=== PATIENT | female | born 1930 | race Caucasian/White ===

== ENCOUNTER 2017-05-22 09:47 | Observation (INO) | payer OTHER ==
[~2017-05-22] VITALS: Ht 144.8 cm; Wt 54.5 kg
[2017-05-22 09:48] VITALS: BP 176/81; PULSE 80; RESP 16; TEMP 99.2; O2SAT 94
[2017-05-22] MEDS ORDERED: AMLO5TAB2 PO (10:11)
[2017-05-22] MEDS ORDERED: ATEN100T PO (10:11)
[2017-05-22] MEDS ORDERED: LEVO100T5 PO (10:11)
[2017-05-22] MEDS ORDERED: ATOR40TA16 PO (10:11)
[2017-05-22] MEDS ORDERED: LISI10TA3 PO (10:11)
[2017-05-22] MEDS ORDERED: PLAV75TA29 PO (10:11)
--- NOTE | 2017-05-22 10:22 | PD ---
HPI Chief Complaint: abdominal pain Time Seen by Provider: 10:18 Travel History International Travel<30 days: No Contact w/Intl Traveler<30days: No Traveled to known affect area: No History of Present Illness HPI c/o ruq pain, radiated to right shoulder blade, sharp, constant for past 2 weeks , only changing in intensity, rates 8/10, denies n/v/d/fever/cain/cp at this time....patient states that taking deep breaths worsens radiated pain. nkda pcp duran guillen pmhx:htn, hyperchol, hypothyroid, cva with left sided weakness pshx: PFSH Past Medical History Cerebrovascular Accident: Yes (2012, left side weakness) Diminished Hearing: Yes Social History Alcohol Use: No Tobacco Use: No Substance Use: No Allergies-Medications (Allergen,Severity, Reaction): Coded Allergies: No Known Allergies (Unverified , 05/22/17) Reported Meds & Prescriptions Reported Meds & Active Scripts Active Reported Lisinopril 10 Mg Tab 10 Mg PO BID Levothyroxine (Levothyroxine Sodium) 100 Mcg Tab 100 Mcg PO DAILY Plavix (Clopidogrel Bisulfate) 75 Mg Tab 75 Mg PO DAILY Atorvastatin (Atorvastatin Calcium) 40 Mg Tab 40 Mg PO HS Atenolol 100 Mg Tab 100 Mg PO DAILY Amlodipine (Amlodipine Besylate) 5 Mg Tab 5 Mg PO DAILY Review of Systems General / Constitutional: No: Fever Eyes: No: Visual changes HENT: No: Headaches Cardiovascular: No: Chest Pain or Discomfort Respiratory: No: Shortness of Breath Gastrointestinal: Positive: Abdominal Pain (ruq) Genitourinary: No: Dysuria Musculoskeletal: No: Pain Skin: No Rash Neurologic: No: Weakness Psychiatric: No: Depression Endocrine: No: Polydipsia Hematologic/Lymphatic: No: Easy Bruising Physical Exam Narrative GENERAL: SKIN: Warm and dry. HEAD: Atraumatic. Normocephalic. EYES: Pupils equal and round. No scleral icterus. No injection or drainage. ENT: No nasal bleeding or discharge. Mucous membranes pink and moist. NECK: Trachea midline. No JVD. CARDIOVASCULAR: Regular rate and rhythm. RESPIRATORY: No accessory muscle use. Clear to auscultation. Breath sounds equal bilaterally. GASTROINTESTINAL: Abdomen soft, nondistended. MUSCULOSKELETAL: Extremities without clubbing, cyanosis, or edema. No obvious deformities. NEUROLOGICAL: Awake and alert. No obvious cranial nerve deficits. Motor grossly within normal limits. Five out of 5 muscle strength in the arms and legs. Normal speech. PSYCHIATRIC: Appropriate mood and affect; insight and judgment normal. Data Data Last Documented VS Vital Signs Date Time Temp Pulse Resp B/P (MAP) Pulse Ox O2 Delivery O2 Flow Rate FiO2 05/22/17 10:06 17 Room Air 05/22/17 10:06 05/22/17 09:48 99.2 80 94 Orders Orders Complete Blood Count With Diff (05/22/17 10:33) Comprehensive Metabolic Panel (05/22/17 10:33) Lipase (05/22/17 10:33) Prothrombin Time / Inr (Pt) (05/22/17 10:33) Act Partial Throm Time (Ptt) (05/22/17 10:33) Ct Abd/Pel W/O Iv Contrast (05/22/17 10:33) Us Abdomen Gallbladder (05/22/17 ) Iv Access Insert/Monitor (05/22/17 10:33) Ecg Monitoring (05/22/17 10:33) Oximetry (05/22/17 10:33) NPO (05/22/17 10:33) Morphine Inj (Morphine Inj) (05/22/17 10:45) Ondansetron Inj (Zofran Inj) (05/22/17 10:45) Sodium Chlor 0.9% 1000 Ml Inj (Ns 1000 M (05/22/17 10:33) Sodium Chloride 0.9% Flush (Ns Flush) (05/22/17 10:45) Electrocardiogram (05/22/17 10:33) Ckmb (Isoenzyme) Profile (05/22/17 10:34) Troponin I (05/22/17 10:34) Labs Laboratory Tests Test 05/22/17 10:50 White Blood Count 9.0 TH/MM3 Red Blood Count 3.77 MIL/MM3 Hemoglobin 12.2 GM/DL Hematocrit 36.4 % Mean Corpuscular Volume 96.7 FL Mean Corpuscular Hemoglobin 32.4 PG Mean Corpuscular Hemoglobin Concent 33.5 % Red Cell Distribution Width 13.4 % Platelet Count 222 TH/MM3 Mean Platelet Volume 8.2 FL Neutrophils (%) (Auto) 68.8 % Lymphocytes (%) (Auto) 21.6 % Monocytes (%) (Auto) 6.7 % Eosinophils (%) (Auto) 2.4 % Basophils (%) (Auto) 0.5 % Neutrophils # (Auto) 6.2 TH/MM3 Lymphocytes # (Auto) 1.9 TH/MM3 Monocytes # (Auto) 0.6 TH/MM3 Eosinophils # (Auto) 0.2 TH/MM3 Basophils # (Auto) 0.0 TH/MM3 CBC Comment DIFF FINAL Differential Comment Prothrombin Time 10.0 SEC Prothromb Time International Ratio 1.0 RATIO Activated Partial Thromboplast Time 22.7 SEC Blood Urea Nitrogen 12 MG/DL Creatinine 0.76 MG/DL Random Glucose 135 MG/DL Total Protein 7.4 GM/DL Albumin 3.4 GM/DL Calcium Level 8.8 MG/DL Alkaline Phosphatase 105 U/L Aspartate Amino Transf (AST/SGOT) 17 U/L Alanine Aminotransferase (ALT/SGPT) 20 U/L Total Bilirubin 0.4 MG/DL Sodium Level 140 MEQ/L Potassium Level 3.8 MEQ/L Chloride Level 108 MEQ/L Carbon Dioxide Level 24.6 MEQ/L Anion Gap 7 MEQ/L Estimat Glomerular Filtration Rate 72 ML/MIN Total Creatine Kinase 73 U/L Troponin I LESS THAN 0.02 NG/ML Lipase 111 U/L [facility] Medical Decision Making Medical Screen Exam Complete: Yes Emergency Medical Condition: Yes Medical Record Reviewed: Yes Differential Diagnosis biliary colic v cholecystitis v pancreatitis v hepatitis v colitis v diverticulitis V ACALCULOUS CHOLECYSTITIS V ATYPICAL NONSTEMI Narrative Course CBC NEG FOR LEUKOCYTOSIS, NO ANEMIA, NORMAL PLATELET COAG PROFILE NORMAL NL ELECTROLYTES, NL KIDNEY FUNCTION, NORMAL LIVER/PANCREAS FUNCTION CAT SCAN NEG FOR DIVERTIC/COLITIS/FREE AIR/SBO OR ILEUS ULTRASOUND SHOWS NO GALLSTONE/GB WALL THICKENING/OR PERICHOL FLUID Diagnosis Primary Impression: RIGHT PHRENIC IRRITATION Additional Impression: ATYPICAL NONSTEMI V ACALCULOUS CHOLECYSTITIS Patient Instructions: Gallbladder Ejection Fraction (GEN), General Instructions Keith Mendez MD May 22, 2017 10:22
[2017-05-22] MEDS ORDERED: SODIUM CHLOR 0.9% 1000 ML INJ 1,000 ML IV SCH (10:33)
[2017-05-22] MEDS ORDERED: MORPHINE SULFATE 4 MG/ML INJ IV PUSH ONE (10:45)
[2017-05-22] MEDS ORDERED: ONDANSETRON HCL 4 MG/2 ML VIAL IVP ONE (10:45)
[2017-05-22] MEDS ORDERED: SODIUM CHLORIDE 0.9% FLUSH 10 ML FLUSH IV FLUSH PRN ×2 (10:45→13:30)
[2017-05-22 11:19] LABS: AUTOMATED NEUTROPHIL # 6.2 TH/MM3 (1.8-7.7); BASOPHIL % 0.5 % (0.0-2.0); EOSINOPHIL # 0.2 TH/MM3 (0-0.4); EOSINOPHIL % 2.4 % (0.0-4.0); HEMATOCRIT 36.4 % (35.0-46.0); HEMOGLOBIN 12.2 GM/DL (11.6-15.3); LYMPH % 21.6 % (9.0-44.0); LYMPHOCYTE # 1.9 TH/MM3 (1.0-4.8); MEAN CELL VOLUME 96.7 FL (80.0-100.0); MEAN CORPUSCULAR HEMOGLOBIN 32.4 PG (27.0-34.0); MEAN CORPUSCULAR HGB CONC 33.5 % (32.0-36.0); MEAN PLATELET VOLUME 8.2 FL (7.0-11.0); MONO % 6.7 % (0.0-8.0); MONOCYTE # 0.6 TH/MM3 (0-0.9); NEUT % 68.8 % (16.0-70.0); PLATELET COUNT 222 TH/MM3 (150-450); RED BLOOD COUNT 3.77 MIL/MM3 (4.00-5.30); RED CELL DISTRIBUTION WIDTH 13.4 % (11.6-17.2)
[2017-05-22 11:36] LABS: ALBUMIN 3.4 GM/DL (3.4-5.0); AST (GOT) 17 U/L (15-37); BICARBONATE 24.6 MEQ/L (21.0-32.0); BLOOD UREA NITROGEN 12 MG/DL (7-18); CALCIUM 8.8 MG/DL (8.5-10.1); CHLORIDE 108 MEQ/L (98-107); CREATININE 0.76 MG/DL (0.50-1.00); GLOMERULAR FILTRATION RATE 72 ML/MIN (>89); GLUCOSE,RANDOM 135 MG/DL (74-106); SODIUM (NA) 140 MEQ/L (136-145)
[2017-05-22 11:39] LABS: ALKALINE PHOSPHATASE 105 U/L (45-117); ALT (GPT) 20 U/L (10-53); TOTAL BILIRUBIN ADULT 0.4 MG/DL (0.2-1.0); TOTAL PROTEIN 7.4 GM/DL (6.4-8.2); TROPONIN I LESS THAN 0.02 NG/ML (0.02-0.05)
--- NOTE | 2017-05-22 11:41 | RADRPT ---
EXAM DATE/TIME: 05/22/2017 10:55 [facility] COMPARISON: No previous studies available for comparison. INDICATIONS : Right upper quadrant and flank pain. ORAL CONTRAST: No oral contrast ingested. RADIATION DOSE: 7.84 CTDIvol (mGy) MEDICAL HISTORY : Cerebrovascular disease. SURGICAL HISTORY : None. ENCOUNTER: Initial ACUITY: 1 day PAIN SCALE: 5/10 LOCATION: Right upper quadrant TECHNIQUE: Renal colic protocol. Volumetric scanning of the abdomen and pelvis was performed. Using automated exposure control and adjustment of the mA and/or kV according to patient size, radiation dose was kep t as low as reasonably achievable to obtain optimal diagnostic quality images. DICOM format image da ta is available electronically for review and comparison. FINDINGS: Right side: No evidence hydronephrosis. No calcified stones in the collecting system or in the right ureter. Left side: No evidence of hydronephrosis. No calcified stones in the collecting system or along the left ureter . 1 cm hypodensity in the cortex of the lateral mid/lower pole which cannot be further characterized on noncontrast study, possibly representing cysts. Bladder: Smooth margins. No calcifications within the lumen. Other: No dilated loops of small and large bowel. No calcified gallstones. No evidence of free fluid stop mild curvature of the lower lumbar spine convex towards the left. CONCLUSION: Negative renal colic CT. Migel Disla MD on May 22, 2017 at 11:37 Board Certified Radiologist. This report was verified electronically.
--- NOTE | 2017-05-22 11:54 | RADRPT ---
EXAM DATE/TIME: 05/22/2017 10:52 [facility] COMPARISON: No previous studies available for comparison. INDICATIONS : Right upper quadrant pain. MEDICAL HISTORY : Stroke. Hearing loss. Glasses. SURGICAL HISTORY : None. ENCOUNTER: Initial ACUITY: 4-6 days PAIN SCORE: 2/10 LOCATION: Right upper quadrant MEASUREMENTS: LIVER: 13.6 cm length COMMON DUCT: 5 mm RIGHT KIDNEY: 9.6 x 4.7 x 4.8 cm FINDINGS: LIVER: Normal echotexture without focal lesion or ductal dilatation. COMMON DUCT: No intraluminal mass or stone visualized. GALLBLADDER: Contains no stones, demonstrates no wall thickening or pericholecystic fluid. PANCREAS: The visualized portions are within normal limits. RIGHT KIDNEY: No evidence of hydronephrosis, stone, or mass. CONCLUSION: Normal examination. Migel Schultz Jr., MD on May 22, 2017 at 11:48 Board Certified Radiologist. This report was verified electronically.
[2017-05-22] MEDS ORDERED: SINCALIDE 5 MCG/5 ML VIAL IV ONE (13:24)
[2017-05-22] MEDS ORDERED: LACTULOSE SYRUP 20 GM/30 ML CUP PO PRN (13:30)
[2017-05-22] MEDS ORDERED: ACETAMINOPHEN/HYDROcodone 325 MG/5 MG TAB PO PRN (13:30)
[2017-05-22] MEDS ORDERED: ONDANSETRON HCL 4 MG/2 ML VIAL IVP PRN (13:30)
[2017-05-22] MEDS ORDERED: BISACODYL 10 MG SUPP RECTAL PRN (13:30)
[2017-05-22] MEDS ORDERED: SENNOSIDES 8.6 MG TAB PO PRN (13:30)
[2017-05-22] MEDS ORDERED: MORPHINE SULFATE 2 MG/ML INJ IV PUSH PRN (13:30)
[2017-05-22] MEDS ORDERED: ACETAMINOPHEN/HYDROcodone 325 MG/10 MG TAB PO PRN (13:30)
[2017-05-22] MEDS ORDERED: NALOXONE HCL 0.4 MG/ML AMP IV PUSH PRN (13:30)
[2017-05-22] MEDS ORDERED: MAGNESIUM HYDROXIDE SUSP 30 ML CUP PO PRN (13:30)
[2017-05-22] MEDS ORDERED: NITROGLYCERIN 2% OINT 1 GM PACKET TOPICAL PRN (13:30)
--- NOTE | 2017-05-22 14:33 | HHI.HP ---
[facility] Primary Care Physician Elder Tate MD Admission Diagnosis ACALCULOUS CHOLECYSTITIS, R/O NONSTEMI Diagnoses: Travel History International Travel<30 Days: No Contact w/Intl Traveler <30 Da: No Traveled to Known Affected Are: No History of Present Illness Patient is a very pleasant 86-year-old female with past medical history of hyperlipidemia, hypertension, hypothyroidism, CVA in 2012 presented to the emergency room upon the request of her primary care physician with complaint of right upper quadrant pain. She tells me her pain is worse with deep breathing and sneezing which started last . She tells me the pain is a 5 out of 10 radiates to her back and shoulder blades Pain comes and goes. Over the weekend, pain had gone away however on Thursday the pain came back. She denies any associated nausea or vomiting, fevers or chills. She has not seen a money manager for this. She did see her heart doctor, Dr. Valdez on May 07 and per patient everything was "okay ". She denies any chest pains, shortness of breath. She is hopeful to go home soon. Denies any abdominal pain other than the right upper quadrant area. She denies any burning with urination or increased urinary frequency. Review of Systems Except as stated in HPI: all other systems reviewed are Neg Past Family Social History Past Medical History hyperlipidemia, hypertension, hypothyroidism, CVA in 2012 Past Surgical History Denies any prior surgery Reported Medications Reported Meds & Active Scripts Active Reported Lisinopril 10 Mg Tab 10 Mg PO BID Levothyroxine (Levothyroxine Sodium) 100 Mcg Tab 100 Mcg PO DAILY Plavix (Clopidogrel Bisulfate) 75 Mg Tab 75 Mg PO DAILY Atorvastatin (Atorvastatin Calcium) 40 Mg Tab 40 Mg PO HS Atenolol 100 Mg Tab 100 Mg PO DAILY Amlodipine (Amlodipine Besylate) 5 Mg Tab 5 Mg PO DAILY Allergies: Coded Allergies: No Known Allergies (Unverified , 05/22/17) Family History Mother had a stroke and a heart attack she at the age of 95. Father young possible CVA Social History Denies any smoking history, alcohol use or illegal drug use. Physical Exam Vital Signs Vital Signs Date Time Temp Pulse Resp B/P (MAP) Pulse Ox O2 Delivery O2 Flow Rate FiO2 05/22/17 13:48 05/22/17 10:06 17 Room Air 05/22/17 10:06 Room Air 05/22/17 09:48 99.2 80 16 176/81 (112) 94 Room Air Physical Exam GENERAL: This is an elderly female, laying in bed, pressing against her right upper quadrant SKIN: No rashes, ecchymoses or lesions. Cool and dry. HEAD: Atraumatic. Normocephalic. No temporal or scalp tenderness. EYES: Pupils equal round and reactive. Extraocular motions intact. No scleral icterus. No injection or drainage. ENT: Nose without drainage. Airway patent. NECK: Trachea midline. CARDIOVASCULAR: Regular rate and rhythm without murmurs RESPIRATORY: Clear to auscultation. Breath sounds equal bilaterally. No wheezes GASTROINTESTINAL: Abdomen soft, tender to deep palpation in the right upper quadrant, ? reis's sign, pt is able to reproduce it herself. No tenderness w palpation of the right side of chest. MUSCULOSKELETAL: Extremities without edema. No calf tenderness. Negative Homans sign bilaterally. NEUROLOGICAL: Awake and alert. Cranial nerves II through XII intact. Motor and sensory grossly within normal limits. Normal speech. Laboratory Laboratory Tests Test 05/22/17 10:50 White Blood Count 9.0 Red Blood Count 3.77 Hemoglobin 12.2 Hematocrit 36.4 Mean Corpuscular Volume 96.7 Mean Corpuscular Hemoglobin 32.4 Mean Corpuscular Hemoglobin Concent 33.5 Red Cell Distribution Width 13.4 Platelet Count 222 Mean Platelet Volume 8.2 Neutrophils (%) (Auto) 68.8 Lymphocytes (%) (Auto) 21.6 Monocytes (%) (Auto) 6.7 Eosinophils (%) (Auto) 2.4 Basophils (%) (Auto) 0.5 Neutrophils # (Auto) 6.2 Lymphocytes # (Auto) 1.9 Monocytes # (Auto) 0.6 Eosinophils # (Auto) 0.2 Basophils # (Auto) 0.0 CBC Comment DIFF FINAL Differential Comment Prothrombin Time 10.0 Prothromb Time International Ratio 1.0 Activated Partial Thromboplast Time 22.7 Blood Urea Nitrogen 12 Creatinine 0.76 Random Glucose 135 Total Protein 7.4 Albumin 3.4 Calcium Level 8.8 Alkaline Phosphatase 105 Aspartate Amino Transf (AST/SGOT) 17 Alanine Aminotransferase (ALT/SGPT) 20 Total Bilirubin 0.4 Sodium Level 140 Potassium Level 3.8 Chloride Level 108 Carbon Dioxide Level 24.6 Anion Gap 7 Estimat Glomerular Filtration Rate 72 Total Creatine Kinase 73 Troponin I LESS THAN 0.02 Lipase 111 Result Diagram: 05/22/17 1050 05/22/17 1050 Imaging Last Impressions Abdomen/Pelvis CT 05/22/17 1033 Signed Impressions: Service Date/Time: Monday, May 22, 2017 10:55 - CONCLUSION: Negative renal colic CT. Migel Disla MD Gall Bladder Ultrasound 05/22/17 0000 Signed Impressions: Service Date/Time: Monday, May 22, 2017 10:52 - CONCLUSION: Normal examination. Migel Schultz Jr., MD Capchai VTE Risk Assessment Caprini VTE Risk Assessment: Mod/High Risk (score >= 2) Caprini Risk Assessment Model Point Value = 1 Point Value = 2 Point Value = 3 Point Value = 5 Age 41-60 Minor surgery BMI > 25 kg/m2 Swollen legs Varicose veins or History of unexplained or recurrent spontaneous Oral contraceptives or hormone replacement Sepsis (< 1 month) Serious lung disease, including pneumonia (< 1 month) Abnormal pulmonary function Acute myocardial infarction Congestive heart failure (< 1 month) History of inflammatory bowel disease Medical patient at bed rest Age 61-74 Arthroscopic surgery Major open surgery (> 45 min) Laparoscopic surgery (> 45 min) Malignancy Confined to bed (> 72 hours) Immobilizing plaster cast Central venous access Age >= 75 History of VTE Family history of VTE Factor V Leiden Prothrombin [id number] Lupus anticoagulant Anticardiolipin antibodies Elevated serum homocysteine Heparin-induced thrombocytopenia Other congenital or acquired thrombophilia Stroke (< 1 month) Elective arthroplasty Hip, pelvis, or leg fracture Acute spinal cord injury (< 1 month) Prophylaxis Regimen Total Risk Factor Score Risk Level Prophylaxis Regimen 0-1 Low Early ambulation 2 Moderate Order ONE of the following: *Sequential Compression Device (SCD) *Heparin 5000 units SQ BID 3-4 Higher Order ONE of the following medications: *Heparin 5000 units SQ TID *Enoxaparin/Lovenox 40 mg SQ daily (WT < 150 kg, CrCl > 30 mL/min) *Enoxaparin/Lovenox 30 mg SQ daily (WT < 150 kg, CrCl > 10-29 mL/min) *Enoxaparin/Lovenox 30 mg SQ BID (WT < 150 kg, CrCl > 30 mL/min) AND/OR *Sequential Compression Device (SCD) 5 or more Highest Order ONE of the following medications: *Heparin 5000 units SQ TID (Preferred with Epidurals) *Enoxaparin/Lovenox 40 mg SQ daily (WT < 150 kg, CrCl > 30 mL/min) *Enoxaparin/Lovenox 30 mg SQ daily (WT < 150 kg, CrCl > 10-29 mL/min) *Enoxaparin/Lovenox 30 mg SQ BID (WT < 150 kg, CrCl > 30 mL/min) AND *Sequential Compression Device (SCD) Assessment and Plan Assessment and Plan Right upper quadrant tenderness/pain: Questionable Reis sign. Ultrasound of the gallbladder was negative, CT abdomen pelvis also negative for renal colic. At this time lipase and LFTs are within normal limits. I will consult gastroenterology for further evaluation and recommendations. I will order a HIDA scan. Pain control with [place] as needed and morphine for breakthrough as needed. Continue stool softeners. IV hydration. NPO for now. Await recs from GI. In addition, initial trop was 0.02. Will trend CE to r/o ACS. Monitor closely. Pt's ply cutter is Dr. Valdez hyperlipidemia, hypertension, hypothyroidism, CVA in 2012: stable. home meds resumed DVT proph: heparin Code Status full Discussed Condition With patient, daughter and ER physician aPige Echevarria MD May 22, 2017 14:33
[2017-05-22 14:54] VITALS: BP 160/70; PULSE 66; RESP 21; TEMP 98; O2SAT 96
[2017-05-22] MEDS ORDERED: cloNIDine HCL 0.1 MG TAB PO PRN (15:00)
[2017-05-22] MEDS ORDERED: ENALAPRILAT 1.25 MG/ML VIAL IV PUSH PRN (15:00)
--- NOTE | 2017-05-22 15:00 | PD.CONS ---
HPI History of Present Illness This is a 86 year old with medical history significant for HTN, hyperlipidemia, history of CVA on Plavix. Pt presented to the ER today with complaints of RUQ abdominal pain for the past week, pain is intermittent worse after coughing and with deep breathing. Pain radiates around right side of her ribs to her back. Denies relation to food. Unsure of alleviating factors. Denies associated nausea, vomiting, changes in bowel movement, heartburn, acid reflux, unintentional weight loss. Pt has had CT abdomen and pelvis and US gallbladder , both of which have been negative for any acute findings. HIDA scan has been ordered by attending to rule out acalculous cholecystitis. Labs WNL. Pt denies ever having EGD. Last colonoscopy was over ten years ago and she is unsure of findings. Denies ETOH, smoking, NSAIDs. (Rhea Houston) PFSH Past Medical History hyperlipidemia, hypertension, hypothyroidism, CVA in 2012 Past Surgical History Denies any prior surgery (Rhea [place]) Coded Allergies: No Known Allergies (Unverified , 05/22/17) Family History Mother had a stroke and a heart attack she at the age of 95. Father young possible CVA Social History Denies any smoking history, alcohol use or illegal drug use. (Rhea Houston) Review of Systems Gastrointestinal: COMPLAINS OF: Abdominal pain, DENIES: Black stools, Bloody stools, Constipation, Diarrhea, Nausea, Vomiting, Difficulty Swallowing, Odynophagia, Swelling of Abdomen, Heartburn, Hematemesis (Rhea Houston) GI Exam Vitals I&O Vital Signs Date Time Temp Pulse Resp B/P (MAP) Pulse Ox O2 Delivery O2 Flow Rate FiO2 05/22/17 13:48 05/22/17 10:06 17 Room Air 05/22/17 10:06 Room Air 05/22/17 09:48 99.2 80 16 176/81 (112) 94 Room Air Imaging Last Impressions Abdomen/Pelvis CT 05/22/17 1033 Signed Impressions: Service Date/Time: Monday, May 22, 2017 10:55 - CONCLUSION: Negative renal colic CT. Migel Disla MD Gall Bladder Ultrasound 05/22/17 0000 Signed Impressions: Service Date/Time: Monday, May 22, 2017 10:52 - CONCLUSION: Normal examination. Migel Schultz Jr., MD Laboratory Test 05/22/17 10:50 White Blood Count 9.0 TH/MM3 Red Blood Count 3.77 MIL/MM3 Hemoglobin 12.2 GM/DL Hematocrit 36.4 % Mean Corpuscular Volume 96.7 FL Mean Corpuscular Hemoglobin 32.4 PG Mean Corpuscular Hemoglobin Concent 33.5 % Red Cell Distribution Width 13.4 % Platelet Count 222 TH/MM3 Mean Platelet Volume 8.2 FL Neutrophils (%) (Auto) 68.8 % Lymphocytes (%) (Auto) 21.6 % Monocytes (%) (Auto) 6.7 % Eosinophils (%) (Auto) 2.4 % Basophils (%) (Auto) 0.5 % Neutrophils # (Auto) 6.2 TH/MM3 Lymphocytes # (Auto) 1.9 TH/MM3 Monocytes # (Auto) 0.6 TH/MM3 Eosinophils # (Auto) 0.2 TH/MM3 Basophils # (Auto) 0.0 TH/MM3 CBC Comment DIFF FINAL Differential Comment Prothrombin Time 10.0 SEC Prothromb Time International Ratio 1.0 RATIO Activated Partial Thromboplast Time 22.7 SEC Blood Urea Nitrogen 12 MG/DL Creatinine 0.76 MG/DL Random Glucose 135 MG/DL Total Protein 7.4 GM/DL Albumin 3.4 GM/DL Calcium Level 8.8 MG/DL Alkaline Phosphatase 105 U/L Aspartate Amino Transf (AST/SGOT) 17 U/L Alanine Aminotransferase (ALT/SGPT) 20 U/L Total Bilirubin 0.4 MG/DL Sodium Level 140 MEQ/L Potassium Level 3.8 MEQ/L Chloride Level 108 MEQ/L Carbon Dioxide Level 24.6 MEQ/L Anion Gap 7 MEQ/L Estimat Glomerular Filtration Rate 72 ML/MIN Total Creatine Kinase 73 U/L Troponin I LESS THAN 0.02 NG/ML Lipase 111 U/L Physical Examination HEENT: Normocephalic; atraumatic; no jaundice CHEST: Even/unlabored CARDIAC: RRR ABDOMEN: Soft, nondistended, nontender; bowel sounds active EXTREMITIES: No clubbing, cyanosis, or edema. SKIN: Normal; no rash; no jaundice. MANAGER PSYCHOLOGY: No focal deficits; alert and oriented times three. (Rhea Houston) Assessment and Plan Plan Assessment: - Epigastric/RUQ pain radiating around right ribs to her back x 1 wk, intermittent, worse with deep breathing, coughing, and sneezing. Unrelated to food. Denies associated nausea, vomiting, acid reflux, heartburn, dysphagia melena. US gallbladder and CT abdomen and pelvis negative for any acute findings. CMP and CBC WNL. HIDA scan ordered per attending to rule out acalculous cholecystitis. Has never had EGD. Denies ETOH, smoking, NSAIDs. - Plavix for history of CVA. Plan: HIDA scan pending If abnormal, consult GS Possible EGD on Thursday if no indication for pain on HIDA scan If pt DCd prior to Thursday, EGD can be done on outpatient basis JUDD Further recommendations to follow based on results of above and clinical course Pt has been seen and examined by myself and Dr. Coombs and this note is written on his behalf (Rhea Houston) Physician Comments Seen and examined with IZABELLA, valdez -carlene so far. HIDA -ve. Pain seems to be musculoskeletal and started after a bout of coughing a week ago. If still symptomatic over the weekend consider EGD and /or ct with contrast next week. Discussed with daughter at the bedside. Dr. Gamboa to follow. Thank you (Mejia Coombs MD) Rhea Houston May 22, 2017 15:00 Mejia Coombs MD May 22, 2017 19:46
--- NOTE | 2017-05-22 16:36 | EKG ---
Date Performed: 05/22/2017 Time Performed: 10:43:36 PTAGE: 86 years EKG: Sinus rhythm BORDERLINE LEFT AXIS DEVIATION NONSPECIFIC T-WAVE ABNORMALITY BORDERLINE ECG NO PREVIOUS TRACING DOCTOR: Bernardo Valdez Interpretating Date/Time 05/22/2017 16:33:42
--- NOTE | 2017-05-22 17:21 | RADRPT ---
EXAM DATE/TIME: 05/22/2017 15:15 [facility] COMPARISON: CT ABDOMEN & PELVIS W/O CONTRAST, May 22, 2017, 10:55. US ABDOMEN - GALLBLADDER, May 22 018, 10:52. INDICATIONS : Abdominal pain. DOSE: 4.4 mCi Tc99m Mebrofenin IV MEDICATION: 1.1 mcg Cholecystokinin IV; No symptomatic response. Cholecystokinin was administered by slow infusion over 8 minutes beginning at 60 minutes. MEDICAL HISTORY : Stroke. SURGICAL HISTORY : None. ENCOUNTER: Initial ACUITY: 1 day PAIN SCALE: 8/10 LOCATION: Right upper quadrant TECHNIQUE: Following the intravenous administration of radiotracer, dynamic sequential image were performed with continuous acquisition. Time-activity curves were generated. FINDINGS: HEPATIIC KINETICS: There is prompt uptake of radiotracer in the liver. No focal defects are seen. There is normal rate of washout from the hepatic parenchyma. BILIARY CLEARANCE: Activity is first seen in the extrahepatic biliary system at 7 minutes. There is normal excretion in to the small bowel. GALLBLADDER: Activity is first seen in the gallbladder at 14 minutes. POST CHOLECYSTOKININ: After Cholecystokinin administration, there is prompt emptying of the gallbladder with a 50 % ejectio n fraction. Common bile duct kinetics are normal and there is no evidence of biliary obstruction. BILIARY ENTERIC REFLUX: Episode of mild biliary enteric reflux occurs at 73 minutes, after CCK administration. CLINICAL: The patient was asymptomatic after Cholecystokinin administration. CONCLUSION: 1. Proper visualization of the gallbladder and normal gallbladder ejection fraction. 2. Mild to moderate episode of biliary enteric reflux which occurs after CCK administration. Migel Disla MD on May 22, 2017 at 17:17 Board Certified Radiologist. This report was verified electronically.
[2017-05-22 18:31] VITALS: BP 160/65
[2017-05-22 19:26] VITALS: BP 170/75; PULSE 64; RESP 17; TEMP 98.4; O2SAT 96
[2017-05-22 20:10] VITALS: PULSE 68
[2017-05-22] MEDS: HEPARIN SODIUM - SQ 10,000 UNITS/ML VIAL SQ SCH ×2 (21:00→21:03)
[2017-05-22] MEDS: DOCUSATE SODIUM 50 MG/SENNA 8.6 MG TAB PO SCH (21:00)
[2017-05-22] MEDS ORDERED: ATORVASTATIN 40 MG TAB PO SCH (21:00)
[2017-05-22] MEDS: LISINOPRIL 10 MG TAB PO SCH (21:01)
[2017-05-22] MEDS: SODIUM CHLORIDE 0.9% FLUSH 10 ML FLUSH IV FLUSH SCH (21:02)
[2017-05-22 21:27] LABS: TROPONIN I LESS THAN 0.02 NG/ML (0.02-0.05)
--- NOTE | 2017-05-22 23:02 | EKG ---
Date Performed: 05/22/2017 Time Performed: 19:22:55 PTAGE: 86 years EKG: Sinus rhythm NONSPECIFIC ST & T-WAVE ABNORMALITY BORDERLINE ECG NO PREVIOUS TRACING DOCTOR: Bernardo Valdez Interpretating Date/Time 05/22/2017 23:01:29
[2017-05-22 23:16] VITALS: BP 153/70; PULSE 66; RESP 17; TEMP 97.9; O2SAT 95
--- NOTE | 2017-05-22 23:20 | EKG ---
Date Performed: 05/22/2017 Time Performed: 14:15:39 PTAGE: 86 years EKG: SINUS BRADYCARDIA PROBABLE ARM LEAD REVERSAL LATERAL MYOCARDIAL INFARCTION ABNORMAL ECG PREVIOUS TRACING : 05/22/2017 10.43 Compared to previous tracing, arm lead reversal is now evid ent. DOCTOR: Bernardo Valdez Interpretating Date/Time 05/22/2017 23:20:11
[2017-05-23 00:30] VITALS: PULSE 60
[2017-05-23 01:06] LABS: TROPONIN I LESS THAN 0.02 NG/ML (0.02-0.05)
[2017-05-23 03:48] VITALS: BP 140/65; PULSE 62; RESP 17; TEMP 98.1; O2SAT 95
[2017-05-23 04:34] VITALS: PULSE 60
[2017-05-23] MEDS ORDERED: LEVOTHYROXINE SODIUM 100 MCG TAB PO SCH (06:00)
[2017-05-23] MEDS ORDERED: amLODIPine BESYLATE 5 MG TAB PO SCH (09:00)
[2017-05-23] MEDS ORDERED: CLOPIDOGREL 75 MG TAB PO SCH (09:00)
[2017-05-23] MEDS ORDERED: ATENOLOL 100 MG TAB PO SCH (09:00)
[2017-05-23] MEDS: DOCUSATE SODIUM 50 MG/SENNA 8.6 MG TAB PO SCH (09:00)
[2017-05-23] MEDS: SODIUM CHLORIDE 0.9% FLUSH 10 ML FLUSH IV FLUSH SCH (09:01)
[2017-05-23] MEDS: LISINOPRIL 10 MG TAB PO SCH (09:04)
--- NOTE | 2017-05-23 09:17 | HHI.GIFU ---
Subjective Remarks resting in the bed family in still having RUQ pain , but not requiring pain meds this am, radiating up into her right shoulder Sipping on clear liquids without nausea or vomiting (Amaya Yung) Objective Vitals I&O Vital Signs Date Time Temp Pulse Resp B/P (MAP) Pulse Ox O2 Delivery O2 Flow Rate FiO2 05/23/17 04:34 60 05/23/17 03:48 98.1 62 17 140/65 (90) 95 05/23/17 00:30 60 05/22/17 23:16 97.9 66 17 153/70 (97) 95 05/22/17 20:10 68 05/22/17 19:26 98.4 64 17 170/75 (106) 96 05/22/17 18:31 160/65 (96) 05/22/17 14:54 98.0 66 21 160/70 (100) 96 05/22/17 13:48 05/22/17 10:06 17 Room Air 05/22/17 10:06 Room Air 05/22/17 09:48 99.2 80 16 176/81 (112) 94 Room Air I/O 05/22/17 05/22/17 05/22/17 05/23/17 05/23/17 05/23/17 07:00 15:00 23:00 07:00 15:00 23:00 Intake Total 1240 ml Balance 1240 ml Intake Oral 240 ml IV Total 1000 ml # Voids 1 2 Laboratory Laboratory Tests Test 05/22/17 10:50 05/22/17 18:36 05/23/17 00:20 White Blood Count 9.0 Red Blood Count 3.77 Hemoglobin 12.2 Hematocrit 36.4 Mean Corpuscular Volume 96.7 Mean Corpuscular Hemoglobin 32.4 Mean Corpuscular Hemoglobin Concent 33.5 Red Cell Distribution Width 13.4 Platelet Count 222 Mean Platelet Volume 8.2 Neutrophils (%) (Auto) 68.8 Lymphocytes (%) (Auto) 21.6 Monocytes (%) (Auto) 6.7 Eosinophils (%) (Auto) 2.4 Basophils (%) (Auto) 0.5 Neutrophils # (Auto) 6.2 Lymphocytes # (Auto) 1.9 Monocytes # (Auto) 0.6 Eosinophils # (Auto) 0.2 Basophils # (Auto) 0.0 CBC Comment DIFF FINAL Differential Comment Prothrombin Time 10.0 Prothromb Time International Ratio 1.0 Activated Partial Thromboplast Time 22.7 Blood Urea Nitrogen 12 Creatinine 0.76 Random Glucose 135 Total Protein 7.4 Albumin 3.4 Calcium Level 8.8 Alkaline Phosphatase 105 Aspartate Amino Transf (AST/SGOT) 17 Alanine Aminotransferase (ALT/SGPT) 20 Total Bilirubin 0.4 Sodium Level 140 Potassium Level 3.8 Chloride Level 108 Carbon Dioxide Level 24.6 Anion Gap 7 Estimat Glomerular Filtration Rate 72 Total Creatine Kinase 73 70 61 Troponin I LESS THAN 0.02 LESS THAN 0.02 LESS THAN 0.02 Lipase 111 Imaging Last Impressions Abdomen/Pelvis CT 05/22/17 1033 Signed Impressions: Service Date/Time: Monday, May 22, 2017 10:55 - CONCLUSION: Negative renal colic CT. Migel Disla MD Hepatobiliary Scan Nuclear Medicine 05/22/17 0000 Signed Impressions: Service Date/Time: Monday, May 22, 2017 15:15 - CONCLUSION: 1. Proper visualization of the gallbladder and normal gallbladder ejection fraction. 2. Mild to moderate episode of biliary enteric reflux which occurs after CCK administration. Migel Dilsa MD Gall Bladder Ultrasound 05/22/17 0000 Signed Impressions: Service Date/Time: Monday, May 22, 2017 10:52 - CONCLUSION: Normal examination. Migel Schultz Jr., MD Physical Exam HEENT: Pupils round and reactive to light; normocephalic; atraumatic; no jaundice. Oral cavity clean NECK: Neck is supple, no JVD, no lymphadenopathy. CHEST: Chest is clear to auscultation and percussion. CARDIAC: Regular rate and rhythm with no murmur gallop or rubs. ABDOMEN: Soft, nondistended, right upper quadrant tenderness on light palpation radiating into right shoulder; no hepatosplenomegaly; bowel sounds soft EXTREMITIES: No clubbing, cyanosis, or edema. SKIN: Pale, thin turgor; no rash; no jaundice. SUPERVISOR DYER: No focal deficits; alert and oriented times three. (Amaya Yung) Assessment and Plan Plan Assessment:/History - Epigastric/RUQ pain radiating around right ribs to her back x 1 wk, intermittent, worse with deep breathing, coughing, and sneezing. Unrelated to food. Denies associated nausea, vomiting, acid reflux, heartburn, dysphagia melena. US gallbladder and CT abdomen negative for any acute findings. HIDA scan normal ejection, mild to moderate biliary reflux after CCK Anemia, mild , unspecified, no obvious bleeding noted. Hemoglobin 12.2 Currently denies any nausea or vomiting, does note some coughing over the past week. Spoke with and exp family lained current findings. Plan: Diet clear liquids observe for toleration or upper GI symptoms Consider EGD and repeat CT scan, TBA, if symptoms persist Monitor labs Encouraged increased activity and ambulation. Bowel regimen Monitor for any acute bleeding Supportive care Further recommendations to follow based on results of above and clinical course Pt has been seen and examined by myself and Dr. Gamboa, note is written on his behalf (Amaya Yung) Plan Patient was seen and examined, agree with above-noted, I had a discussion with the patient and her daughter, most of her symptoms is related to cough and when she bleed deeply, looks like it's a musculoskeletal pain in the right side, some ribs tenderness, we talked about possibly doing an endoscopy but she preferred not to have it done, if that's the case I would suggest increasing diet as tolerated, having patient mobilize, treat musculoskeletal pain, if she changes her mind and wanted to do upper endoscopy we can perform that, not likely to be related to gallbladder disease (Thiago Gamboa MD) Amaya Yung May 23, 2017 09:17 Thiago Gamboa MD May 23, 2017 11:07
[2017-05-23 09:18] VITALS: BP 174/75; PULSE 75; RESP 20; TEMP 97.6; O2SAT 95
[2017-05-23] MEDS: HEPARIN SODIUM - SQ 10,000 UNITS/ML VIAL SQ SCH (11:04)
[2017-05-23 11:37] VITALS: BP 151/67; PULSE 67; RESP 16; TEMP 98.2; O2SAT 95
--- NOTE | 2017-05-23 13:01 | HHI.PR ---
Subjective Remarks Follow up for RUQ abdominal pain. The patient reports continued mild intermittent RUQ abdominal/flank pain today, worse with deep inspiration and movements. Denies any nausea/vomiting or diarrhea. She tolerated clear liquid food for breakfast. Denies fevers/chills. She wants to go home. Objective Vitals Vital Signs Date Time Temp Pulse Resp B/P (MAP) Pulse Ox O2 Delivery O2 Flow Rate FiO2 05/23/17 11:37 98.2 67 16 151/67 (95) 95 05/23/17 09:18 97.6 75 20 174/75 (108) 95 05/23/17 04:34 60 05/23/17 03:48 98.1 62 17 140/65 (90) 95 05/23/17 00:30 60 05/22/17 23:16 97.9 66 17 153/70 (97) 95 05/22/17 20:10 68 05/22/17 19:26 98.4 64 17 170/75 (106) 96 05/22/17 18:31 160/65 (96) 05/22/17 14:54 98.0 66 21 160/70 (100) 96 05/22/17 13:48 I/O 05/22/17 05/22/17 05/22/17 05/23/17 05/23/17 05/23/17 07:00 15:00 23:00 07:00 15:00 23:00 Intake Total 1240 ml 480 ml Balance 1240 ml 480 ml Intake Oral 240 ml 480 ml IV Total 1000 ml # Voids 1 2 Result Diagram: 05/22/17 1050 05/22/17 1050 Imaging Last Impressions Abdomen/Pelvis CT 05/22/17 1033 Signed Impressions: Service Date/Time: Monday, May 22, 2017 10:55 - CONCLUSION: Negative renal colic CT. Migel Disla MD Hepatobiliary Scan Nuclear Medicine 05/22/17 0000 Signed Impressions: Service Date/Time: Monday, May 22, 2017 15:15 - CONCLUSION: 1. Proper visualization of the gallbladder and normal gallbladder ejection fraction. 2. Mild to moderate episode of biliary enteric reflux which occurs after CCK administration. Migel Disla MD Gall Bladder Ultrasound 05/22/17 0000 Signed Impressions: Service Date/Time: Bob, May 22, 2017 10:52 - CONCLUSION: Normal examination. Migel Schultz Jr., MD Objective Remarks GENERAL: Well-nourished, well-developed pleasant elderly female patient in [facility]. SKIN: Warm and dry. No rash. HEENT: Normocephalic. Atraumatic. Pupils equal and round. Mucous membranes pink and moist. CARDIOVASCULAR: Regular rate and rhythm. S1, S2 noted. No murmur appreciated. RESPIRATORY: No accessory muscle use. Clear to auscultation. Breath sounds equal bilaterally. GASTROINTESTINAL: Abdomen soft, non-tender, nondistended. Normoactive bowel sounds x4. MUSCULOSKELETAL: No obvious deformities. Extremities without clubbing, cyanosis , or edema. Right flank nontender to palpation. NEUROLOGICAL: Awake and alert. No obvious cranial nerve deficits. Motor grossly within normal limits. Normal speech. PSYCHIATRIC: Appropriate mood and affect; insight and judgment normal. Medications and IVs Current Medications Medications (Trade) Dose Ordered Sig/Deya Route Start Time Stop Time Status Last Admin (NS Flush) 2 ml UNSCH PRN IV FLUSH 05/22/17 13:30 (NS Flush) 2 ml BID IV FLUSH 05/22/17 21:00 05/23/17 09:01 (Zofran Inj) 4 mg Q6H PRN IVP 05/22/17 13:30 (Narcan Inj) 0.4 mg UNSCH PRN IV PUSH 05/22/17 13:30 (Linda-Colace) 1 tab BID PO 05/22/17 21:00 (Milk Of Magnesia Liq) 30 ml Q12H PRN PO 05/22/17 13:30 (Senokot) 17.2 mg Q12H PRN PO 05/22/17 13:30 (Dulcolax Supp) 10 mg DAILY PRN RECTAL 05/22/17 13:30 (Lactulose Liq) 30 ml DAILY PRN PO 05/22/17 13:30 (Nitroglycerin 2% Oint) 0.5 inch Q6H PRN TOPICAL 05/22/17 13:30 (Morphine Inj) 2 mg Q4H PRN IV PUSH 05/22/17 13:30 (Salem 5-325 Mg) 1 tab Q4H PRN PO 05/22/17 13:30 (Salem 10-325 Mg) 1 tab Q4H PRN PO 05/22/17 13:30 (Heparin Inj) 5,000 units Q12HR SQ 05/22/17 21:00 05/23/17 11:04 (Norvasc) 5 mg DAILY PO 05/23/17 09:00 05/23/17 09:03 (Tenormin) 100 mg DAILY PO 05/23/17 09:00 05/23/17 09:02 (Lipitor) 40 mg HS PO 05/22/17 21:00 05/22/17 21:02 (Plavix) 75 mg DAILY PO 05/23/17 09:00 05/23/17 09:02 (Synthroid) 100 mcg DAILY@0600 PO 05/23/17 06:00 05/23/17 05:34 (Prinivil) 10 mg BID PO 05/22/17 21:00 05/23/17 09:04 (Vasotec Inj) 1.25 mg Q6H PRN IV PUSH 05/22/17 15:00 (Catapres) 0.1 mg Q6H PRN PO 05/22/17 15:00 A/P Assessment and Plan 86-year-old female with past medical history of HTN, HLD, hypothyroidism, CVA in 2012 presented to the ED upon the request of her PCP with complaint of right upper quadrant pain. Right upper quadrant tenderness/pain: Questionable Reis sign. -Ultrasound of the gallbladder was negative, CT abdomen pelvis also negative for renal colic. -Lipase and LFTs are within normal limits. 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 home meds resumed. DVT proph: heparin Discharge Planning Discharge patient to home Condition on discharge: Stable Regular Diet as tolerated Ad Dorothy activity Rx written: no new meds Follow-up with primary care physician Dr. Tate in 2-3 days, and gastroenterology in 1 week Keyla Méndez PA-C May 23, 2017 1:01 pm
== END 2017-05-23 18:21 | disposition home or self-care (01) ==
LOC: EDBD 09:47 → NEPD 09:47 → NEDA 13:23 → NEPFCDU 13:52
PROVIDERS: ADMIT Family Medicine; ATTEND Family Medicine
DX: R10.11 Right upper quadrant pain (principal); I10 Essential (primary) hypertension; E78.5 Hyperlipidemia, unspecified; K21.9 Gastro-esophageal reflux disease without esophagitis; D64.9 Anemia, unspecified; E03.9 Hypothyroidism, unspecified; R94.31 Abnormal electrocardiogram [ECG] [EKG]; H91.90 Unspecified hearing loss, unspecified ear; Z86.73 Personal history of transient ischemic attack (TIA), and cerebral infarction without residual deficits
CPT/HCPCS: 74176; 76705; 78227; 80053; 82550; 83690; 84484; 85025; 85610; 85730; 93005; 96360; 96372; 99285; A9537; G0378; J1644; J2805; J7030